=== PATIENT | male | born 1975 ===

== ENCOUNTER 2018-12-29 03:39 | Emergency (ER) | payer OTHER ==
[~2018-12-29] VITALS: Ht 167.6 cm; Wt 90.7 kg
[~2018-12-29 03:39] MED LIST: TUSSI PRES-B L120 M1 PO; ZITHROMAX TRI-500 MG PO
== END 2018-12-29 04:52 | disposition home or self-care (01) ==
LOC: ER 03:39
DX: T78.1XXA Other adverse food reactions, not elsewhere classified, initial encounter (principal); R21 Rash and other nonspecific skin eruption

== ENCOUNTER 2019-10-21 06:42 | Emergency (ER) | payer OTHER ==
[~2019-10-21] VITALS: Ht 182.9 cm; Wt 87.5 kg
== END 2019-10-21 10:01 | disposition home or self-care (01) ==
LOC: ER 06:42
DX: M77.8 Other enthesopathies, not elsewhere classified (principal)

== ENCOUNTER 2021-06-06 06:45 | Emergency (ER) | payer OTHER ==
[~2021-06-06] VITALS: Ht 182.9 cm; Wt 93.9 kg
[2021-06-06] MEDS ORDERED: CLARITIN-D 121 EACH PO (10:31)
[2021-06-06] MEDS ORDERED: AMOX-CLAV 875-1 EACH PO (10:31)
[2021-06-06] MEDS ORDERED: TUSSIN DM SYRU118 ML PO (10:31)
== END 2021-06-06 11:34 | disposition home or self-care (01) ==
LOC: ER 06:45
DX: J06.9 Acute upper respiratory infection, unspecified (principal)

== ENCOUNTER 2022-11-06 09:48 | Outpatient (CLI) | payer OTHER ==
[~2022-11-06 09:48] MED LIST changes: +AMOX-CLAV 875-1 EACH PO; +CLARITIN-D 121 EACH PO; +TUSSIN DM SYRU118 ML PO
== END 2022-11-06 10:13 | disposition home or self-care (01) ==
LOC: RAD 09:48
PROVIDERS: ATTEND Orthopaedic Surgery
DX: M25.562 Pain in left knee (principal)

== ENCOUNTER 2022-12-20 07:19 | Outpatient (CLI) | payer OTHER | END 2022-12-20 07:32 | disposition home or self-care (01) | LOC: LAB 07:19 | PROVIDERS: ATTEND Orthopaedic Surgery | DX: D64.89 Other specified anemias (principal); E88.89 Other specified metabolic disorders; D68.8 Other specified coagulation defects; N39.0 Urinary tract infection, site not specified; A49.02 Methicillin resistant Staphylococcus aureus infection, unspecified site; I49.8 Other specified cardiac arrhythmias; I10 Essential (primary) hypertension; Z76.89 Persons encountering health services in other specified circumstances ==